=== PATIENT | female | born 1995 | race Two or more races ===

== ENCOUNTER 2021-06-30 04:41 | Inpatient (IN) | payer MEDICAID, OTHER ==
[~2021-06-30] VITALS: Ht 175.3 cm; Wt 64.4 kg
--- NOTE | 2021-06-30 04:45 | NUR ---
Dr. Lechuga at bedside for MSE.
[2021-06-30] MEDS ORDERED: FOLI1TAB94 PO (05:06)
[2021-06-30] MEDS ORDERED: ZONI100C31 PO (05:06)
[2021-06-30] MEDS ORDERED: LEVE1000 PO (05:06)
[2021-06-30] MEDS ORDERED: CLOB10TA PO (05:06)
[2021-06-30] MEDS ORDERED: LACO200T2 PO (05:22)
[2021-06-30 05:30] LABS: CARBON DIOXIDE 21 mmol/L (21-32); CHLORIDE 107 mmol/L (98-107); CREATININE 0.7 mg/dL (0.6-1.3); GLUCOSE 124 mg/dL (74-106); POTASSIUM 3.3 mmol/L (3.5-5.1); UREA NITROGEN, BLOOD 11 mg/dL (7-18)
[2021-06-30 05:33] LABS: HEMATOCRIT 38.8 % (31.2-41.9); MEAN CORPUSCULAR HEMOGLOBIN 34.6 uug (24.7-32.8); MEAN CORPUSCULAR VOLUME 98.7 fL (75.5-95.3); PLATELET COUNT (AUTO) 258 K/uL (179-408)
--- NOTE | 2021-06-30 05:35 | NUR ---
Pt provided urine sample, sent to lab.
[2021-06-30 05:36] LABS: ALANINE AMINOTRANSFERASE 15 U/L (14-59); ALKALINE PHOSPHATASE 81 U/L (50-136); ASPARTATE AMINOTRANSFERASE 13 U/L (15-37); BILIRUBIN,DIRECT 0.1 mg/dL (0.0-0.2); BILIRUBIN,TOTAL 0.3 mg/dL (0.2-1.0); CREATINE KINASE, TOTAL 39 U/L (26-192); TOTAL PROTEIN, SERUM 6.6 g/dL (6.4-8.2)
[2021-06-30 05:48] LABS: ETHANOL < 3 MG/DL (0-0)
[2021-06-30] MEDS ORDERED: POTASSIUM CHLORIDE 20 MEQ TAB.PRT.SR PO ONE (06:00)
[2021-06-30 06:02] LABS: *BILIRUBIN,URIN NEGATIVE (NEGATIVE); *BLOOD, URINE NEGATIVE (NEGATIVE); *CLARITY,URINE CLEAR (CLEAR); *COLOR,URINE YELLOW (YELLOW); *KETONES,URINE NEGATIVE (NEGATIVE); *UROBILINOGEN,URINE 0.2 E.U./dl (NORMAL); LEUKOCYTE ESTERASE ,URINE NEGATIVE (NEGATIVE); NITRITE, URINE NEGATIVE (NEGATIVE); UGLUCOSE NEGATIVE (NEGATIVE)
--- NOTE | 2021-06-30 06:08 | NUR ---
Called Dr. Arias for neurology consult, left message.
--- NOTE | 2021-06-30 06:10 | NUR ---
Called [facility] to page Ra Santacruz NP.
[2021-06-30 06:11] LABS: *AMPHETAMINE, URINE NEGATIVE (NEGATIVE); *CANNABINOID, URINE NEGATIVE (NEGATIVE); *COCCAINE, URINE NEGATIVE (NEGATIVE); *OPIATE, URINE NEGATIVE (NEGATIVE); *PHENCYCLIDINE SCREEN,URINE NEGATIVE (NEGATIVE)
--- NOTE | 2021-06-30 06:15 | NUR ---
Dr. Lechuga on panel call with Ra Santacruz NP. Patient accepted for admission to [facility], diagnosis: seizure.
[2021-06-30] MEDS ORDERED: POTASSIUM CHLORIDE 20 MEQ TAB.PRT.SR ONE (06:20)
[2021-06-30] MEDS ORDERED: TEMAZEPAM 15 MG CAPSULE PO PRN (06:30)
[2021-06-30] MEDS ORDERED: ACETAMINOPHEN 325 MG TABLET PO PRN (06:30)
[2021-06-30] MEDS ORDERED: HYDROCODONE/APAP 5-325MG TABLET PO PRN (06:30)
[2021-06-30] MEDS ORDERED: REMEDY ESSENTIAL ZINC PASTE 113 GM TP PRN (06:30)
[2021-06-30] MEDS ORDERED: LORAZEPAM 2 MG/1 ML VIAL IV PRN (06:30)
[2021-06-30] MEDS ORDERED: ONDANSETRON 4 MG/2 ML VIAL IV PRN (06:30)
[2021-06-30] MEDS ORDERED: MAGNESIUM HYDROXIDE 30 ML LIQUID UDC PO PRN (06:30)
--- NOTE | 2021-06-30 06:39 | NUR ---
Dr. Lechuga speaking with Dr. Arias for neurology consult.
[2021-06-30] MEDS: PANTOPRAZOLE SODIUM 40 MG TABLET.DR PO SCH (07:00)
--- NOTE | 2021-06-30 07:00 | NUR ---
Recieved pt in the room sleeping comfortably, seizure preacourtion in place. No seizure activity noted at this time.
--- NOTE | 2021-06-30 07:00 | NUR ---
Report given to Nathaly denny.
--- NOTE | 2021-06-30 07:20 | NUR ---
Assissted pt to bathroom, denies dizziness and discomfort. Will continue seizure precautions and tele monitoring.
--- NOTE | 2021-06-30 08:12 | NUR ---
Patient is resting comfortably in bed with eyes closed, NAD noted.
[2021-06-30] MEDS ORDERED: levETIRAcetam IV 1,000 MG in IV DEXTROSE 5% 100 ML IV SCH (09:00)
--- NOTE | 2021-06-30 11:00 | NUR ---
Received patient from ED via gurney. Pt is awake, alert and oriented. Safety initiated. longterm assessment done, no skin issues noted. IV on the right AC, patent and intact. Side rails padded for safety. Bed in low and locked position, call light within reach, bed alarm on. Will continue to monitor.
[2021-06-30 12:00] VITALS: BP 128/66
--- NOTE | 2021-06-30 12:00 | NUR ---
HR drops to the mid 40's on the monitor. Pt is asymptomatic. made aware, no new orders.
[2021-06-30 14:30] LABS: THYROID STIMULATING HORMONE 2.715 mIU/mL (0.358-3.740)
--- NOTE | 2021-06-30 14:45 | NUR ---
Neurologist was consulted. New orders in placed.
[2021-06-30 16:00] VITALS: BP 103/44
--- NOTE | 2021-06-30 17:27 | NUR ---
Pt. remains afebrile. TELE SR at 70. Parents at bedside. Denies SOB but reported pain on the right arm. Medication given for pain, stated relief. Vital signs stable. NO seizures reported t/o shift. Rails remains padded for safety. All meds given as ordered. Safety and comfort measures maintained t/o shift. All needs met.
[2021-06-30] MEDS: IV NS 1000 ML 1,000 ML IV PRN (18:21)
--- NOTE | 2021-06-30 18:44 | NUR ---
Waiting for a return call from Neurologist Dr. Rosa. Pt c/o feeling shaky. States "usually when i feel this way is because a seizure is to come". Will closely monitor.
--- NOTE | 2021-06-30 19:07 | NUR ---
Ativan 1 mg IVP given per MD for the "shakiness". Will closely monitor.
--- NOTE | 2021-06-30 19:30 | NUR ---
Assumed care of patient from JENIFFER Bautista. Received patient lying in bed. AAOx4. In no acute distress. Denies any pain or SOB. Seizure precaution observed. NSR on tele with HR of 68/min. IV site on right AC intact and patent. IVF infusing. Continue to monitor.
[2021-06-30 20:59] VITALS: BP 101/50
[2021-06-30] MEDS ORDERED: ZONISAMIDE 100 MG CAPSULE PO SCH (21:00)
[2021-06-30] MEDS: levETIRAcetam IV 1,500 MG in IV DEXTROSE 5% 100 ML IV SCH (22:01)
[2021-07-01 00:24] VITALS: BP 118/62
[2021-07-01 04:32] VITALS: BP 111/49
[2021-07-01] MEDS: PANTOPRAZOLE SODIUM 40 MG TABLET.DR PO SCH (06:02)
--- NOTE | 2021-07-01 06:12 | NUR ---
In no apparent distress. No seizure episode noted. SR and Sinus jewels on tele with HR between 52-68/min. IV site on right AC remains intact and patent. IVF continue to infuse. Needs attended to and met. Safety measure maintained and call light within reached.
[2021-07-01 06:46] LABS: HEMATOCRIT 38.3 % (31.2-41.9); MEAN CORPUSCULAR HEMOGLOBIN 34.1 uug (24.7-32.8); MEAN CORPUSCULAR VOLUME 99.8 fL (75.5-95.3); PLATELET COUNT (AUTO) 268 K/uL (179-408)
[2021-07-01 07:16] LABS: CREATININE 0.8 mg/dL (0.6-1.3); MAGNESIUM 2.1 mg/dL (1.8-2.4); PHOSPHOROUS 3.1 mg/dL (2.5-4.9); POTASSIUM 3.6 mmol/L (3.5-5.1)
--- NOTE | 2021-07-01 08:00 | NUR ---
PATIENT RECEIVED IN BED AWAKE ALERT AND ORIENTED DENIES PAIN OR DISCOMFORTS AT THIS TIME REMAIN ON IVF ORDERED WITH NO S/S OF INFILTERATION ON SITE NO SEIZURE ACTIVITIES AT THIS TIME CALL LIGHTS AND HER PERSONAL BELONGINGS ARE WITHIN EASY REACH WILL CONTINUE TO OBSERVE.
[2021-07-01] MEDS: levETIRAcetam IV 1,500 MG in IV DEXTROSE 5% 100 ML IV SCH (09:11)
[2021-07-01] MEDS: IV NS 1000 ML 1,000 ML IV PRN (09:46)
[2021-07-01 11:52] VITALS: BP 112/62
--- NOTE | 2021-07-01 12:30 | NUR ---
CALL RECEIVED FROM DR VILLAGOMEZ AWARE THAT PATIENT IS DISCHARGED AND WILL BE GOING HOME TODAY WITH NO NEW ORDERS AT THIS TIME.
[2021-07-01] MEDS ORDERED: LACOSAMIDE 50 MG TABLET PO ONE (12:45)
[2021-07-01] MEDS ORDERED: FOLIC ACID 1 MG TABLET PO SCH (13:00)
--- NOTE | 2021-07-01 13:08 | NUR ---
NOTIFIED PATIENT THAT AMARI IS INCREASING HER ZONOGRAM TO 300 FROM 200 PREVIOUSLY TAKING AT HOME AND PATIENT STATED THAT SHE JUST PICKED UP A BOTTLE OF THIS MEDICATION WILL RATHER USE ONE AND A HALF OF THE DOSE SHE HAS AT HOME INSTEAD OF PICKING UP NEW PRESCRIPTION NOTIFIED AMARI GREENFIELD AND SHE STATED OKAY.
--- NOTE | 2021-07-01 14:10 | NUR ---
PATIENT DISCHARGED PICKED UP BY HER FATHER JAVI IN SATISFACTORY CONDITION WITH DISCHARGE INSTRUCTIONS AND ALL HER PERSONAL BELONGINGS AND PATIENT WAS INSTRUCTED TO INCREASE HER ZONEGRAM FROM 200 TO 300 EACH BEDTIME AND SHE EXPRESSED UNDERSTANDING ASSISTED OUT TO HER DADS CAR IN A WHEEL/CHAIR NO SEIZURE ACTIVITIES NOTED AT THIS TIME.
[2021-07-01] MEDS ORDERED: ZONI100C42 PO (14:28)
[2021-07-01] MEDS ORDERED: LACOSAMIDE 50 MG TABLET PO SCH (17:00)
[2021-07-01] MEDS ORDERED: ZONISAMIDE 100 MG CAPSULE PO SCH (21:00)
[2021-07-02 09:07] LABS: CALCITRIOL VIT D,1,25 DIHYDROX 40.1 pg/mL (19.9-79.3)
== END 2021-07-01 14:10 | disposition home or self-care (01) | DRG 53 ==
LOC: ER 04:48 → TELE3 09:42
PROVIDERS: ADMIT Nurse Practitioner Acute Care; ATTEND Nurse Practitioner Acute Care
DX: G40.909 Epilepsy, unspecified, not intractable, without status epilepticus (principal); E87.6 Hypokalemia; Z20.822 Contact with and (suspected) exposure to COVID-19
CPT/HCPCS: 36415; 82652; 82746; 83735; 84100; 84443; 85025; 93005; 95819; A4663; G0378; G0480; J1953; J2060; J7030; J7060; J8499

== ENCOUNTER 2024-10-23 23:39 | Emergency (ER) | payer OTHER ==
[~2024-10-23] VITALS: Ht 149.9 cm; Wt 68.9 kg
[~2024-10-23 23:39] MED LIST: CLOB10TA PO; FOLI1TAB94 PO; LEVE1000 PO; ZONI100C31 PO; ZONI100C42 PO
[2024-10-24] MEDS ORDERED: levETIRAcetam 500 MG/5 ML VIAL IV ONE
[2024-10-24 00:04] LABS: BASOPHILS # (AUTO) 0.1 K/UL (0.0-0.2); BASOPHILS % (AUTO) 0.6 % (0.0-2.0); EOSINOPHILS # (AUTO) 0.1 K/uL (0.0-0.7); EOSINOPHILS % (AUTO) 0.6 % (0.0-7.0); HEMATOCRIT 41.5 % (31.2-41.9); HEMOGLOBIN 14.3 g/dL (10.9-14.3); LYMPHOCYTES # (AUTO) 3.2 K/uL (0.8-4.8); LYMPHOCYTES % (AUTO) 35.2 % (20.5-51.5); MEAN CORPUSCULAR HEMOGLOBIN 33.9 uug (24.7-32.8); MEAN CORPUSCULAR HGB CONC 35 g/dL (32.3-35.6); MEAN CORPUSCULAR VOLUME 98.3 fL (75.5-95.3); MONOCYTES # (AUTO) 0.8 K/uL (0.1-1.30); MONOCYTES % (AUTO) 8.6 % (0.0-11.0); NEUTROPHILS # (AUTO) 4.9 K/uL (1.8-8.9); PLATELET COUNT (AUTO) 267 K/uL (179-408); RED BLOOD CELL COUNT(AUTO) 4.22 MIL/uL (3.63-4.92); RED CELL DISTRIBUTION WIDTH 12.2 % (12.3-17.7)
[2024-10-24 00:05] LABS: DIFFERENTIAL COMMENT 1
[2024-10-24] MEDS: levETIRAcetam IV 500 MG in IV DEXTROSE 5% 100 ML IV ONE (00:09)
[2024-10-24 00:11] LABS: CALCIUM 9.3 mg/dL (8.5-10.1); CREATININE 0.9 mg/dL (0.6-1.3); POTASSIUM 3.9 mmol/L (3.5-5.1)
[2024-10-24 00:16] LABS: ALBUMIN 3.9 g/dL (3.4-5.0); BILIRUBIN,DIRECT 0.1 mg/dL (0.0-0.2); BILIRUBIN,TOTAL 0.5 mg/dL (0.2-1.0); TOTAL PROTEIN, SERUM 7.7 g/dL (6.4-8.2)
[2024-10-24 01:04] VITALS: BP 114/78; O2SAT 99
== END 2024-10-24 01:05 | disposition home or self-care (01) ==
LOC: ER 23:45
DX: G40.909 Epilepsy, unspecified, not intractable, without status epilepticus (principal); F41.9 Anxiety disorder, unspecified; R10.2 Pelvic and perineal pain; Z79.899 Other long term (current) drug therapy; Z88.0 Allergy status to penicillin
CPT/HCPCS: 99284; 80076; 80048; 85025; 84702; 80299; 96365; J1953 ×2; 36415; A4606; A4663